=== PATIENT | male | born 1970 | race African-American/Black ===

== ENCOUNTER 2023-12-28 17:13 | Emergency (ER) | payer BC ==
[2023-12-28 17:26] VITALS: RESP 18; TEMP 98.1; BMI 34.9
[2023-12-28 20:19] LABS: BASO % 1.3 % (0-2.0); HEMATOCRIT 40.8 % (35.4-49); HEMOGLOBIN 13.5 GM/dL (11.7-16.9); LYMPH % 28.3 % (8-40); MCH 29.5 pg (25.7-33.7); MEAN CELL VOLUME 89.2 fl (80-96); MEAN PLT VOLUME 8.6 fl (7.5-11.1); MONO % 11.8 % (3.8-10.2); NEUT % 53.6 % (42.8-82.8); PLATELET COUNT 319 10^3/uL (134-434); RBC 4.57 M/mm3 (4.00-5.60); RDW 15.8 % (11.9-15.9); WHITE BLOOD COUNT 8.7 K/mm3 (4.0-10.0)
[2023-12-28 20:24] LABS: INR 0.96 (0.83-1.09); PROTHROMBIN TIME (PATIENT) 11.1 SEC (9.7-13.0)
[2023-12-28 20:26] LABS: ACTIVATED PTT 34.2 SECONDS (25.2-36.5)
[2023-12-28 20:44] LABS: POTASSIUM 4.3 mmol/L (3.5-5.1)
[2023-12-28 20:46] LABS: ALBUMIN 3.6 g/dl (3.4-5.0); BLOOD UREA NITROGEN 20.1 mg/dL (7-18); CALCIUM 9.2 mg/dL (8.5-10.1)
[2023-12-28 20:49] LABS: CREATININE 1.3 mg/dL (0.55-1.3)
[2023-12-28 20:51] LABS: BILIRUBIN,TOTAL 0.4 mg/dL (0.2-1); TOT PROT 7.4 g/dl (6.4-8.2)
[2023-12-28 22:40] VITALS: BP 145/54; PULSE 72
[2023-12-28] MEDS ORDERED: FUROSEMIDE 40 MG TABLET (FP) ONE (22:42)
[2023-12-28] MEDS: FUROSEMIDE 40 MG TABLET (FP) PO ONE (22:45)
== END 2023-12-28 23:25 | disposition home or self-care (01) ==
LOC: JER 17:13
DX: M79.89 Other specified soft tissue disorders (principal)
CPT/HCPCS: 36415; 80053; 85025; 85610; 85730; 93005; 93010; 93970-TC; 99285-25